=== PATIENT | male | born 1965 | race Caucasian/White ===

== ENCOUNTER 2021-01-07 11:36 | Emergency (ER) | payer BC ==
--- NOTE | 2021-01-07 12:01 | EDM.PDOC ---
ED HPI GENERAL MEDICAL PROBLEM - General Chief Complaint: Laceration Stated Complaint: left hand laceration Time Seen by Provider: 01/07/21 12:01 Source of Information: Reports: Patient History Limitations: Reports: No Limitations - History of Present Illness INITIAL COMMENTS - FREE TEXT/NARRATIVE: 55 YO WM PRESENTS TO ER WITH LEFT INDEX FINGER TIP LACERATION WHICH OCCURRED WHI LE FILLETING/CLEANING A DEER. PT REPORTS BLEEDING WAS CONTROLLED AND HE CONTINUED TO CLEAN DEER AFTER LACERATION. PT DENIES ANY PAIN CURRENTLY. LACERATION IS APPROXIMATELY 5CM VERTICAL/LINEAR WOUND AND APPEARS CLEAN AFTER SOAKING WOUND AT HOME. PT DENIES ANY OTHER INJURY OR ANY COMPLAINTS OF NEUROVASCULAR COMPROMISE. Onset: Today Duration: Hour(s): (2) Location: Reports: Upper Extremity, Left Quality: Reports: Ache Severity: Mild Improves with: Reports: None Worsens with: Reports: None Associated Symptoms: Reports: No Other Symptoms Treatments FAMILY PRACTICE PHYSICIAN ASSISTANT: Reports: Dressing(s) - Related Data Allergies Allergy/AdvReac Type Severity Reaction Status Date / Time No Known Allergies Allergy Verified 01/07/21 11:40 Home Meds: Home Meds hydroCHLOROthiazide [Hydrochlorothiazide] 25 mg PO DAILY 01/07/21 [History] lisinopriL [Lisinopril] 10 mg PO DAILY 01/07/21 [History] Past Medical History Cardiovascular History: Reports: High Cholesterol, Hypertension Psychiatric History: Reports: Bipolar Social & Family History - Caffeine Use Caffeine Use: Reports: Soda ED ROS GENERAL - Review of Systems Review Of Systems: See Below Constitutional: Reports: No Symptoms HEENT: Reports: No Symptoms Respiratory: Reports: No Symptoms Cardiovascular: Reports: No Symptoms Endocrine: Reports: No Symptoms GI/Abdominal: Reports: No Symptoms : Reports: No Symptoms Musculoskeletal: Reports: No Symptoms Skin: Reports: Wound (5CM FINGER TIP LACERATION TO LEFT INDEX FINGER) Neurological: Reports: No Symptoms Psychiatric: Reports: No Symptoms Hematologic/Lymphatic: Reports: No Symptoms Immunologic: Reports: No Symptoms ED EXAM, SKIN/RASH Exam: See Below Exam Limited By: No Limitations General Appearance: Alert, WD/WN, No Apparent Distress Head: Atraumatic, Normocephalic Neck: Normal Inspection, Supple, Non-Tender, Full Range of Motion Respiratory/Chest: No Respiratory Distress, Lungs Clear, Normal Breath Sounds, No Accessory Muscle Use, Chest Non-Tender Cardiovascular: Normal Peripheral Pulses, Regular Rate, Rhythm, No Edema, No Gallop, No JVD, No Murmur, No Rub GI/Abdominal: Normal Bowel Sounds, Soft, Non-Tender, No Organomegaly, No Distention, No Abnormal Bruit, No Mass Back Exam: Normal Inspection, Full Range of Motion, NT Extremities: Normal Inspection, Normal Range of Motion, No Pedal Edema, Normal Capillary Refill Neurological: Alert, Oriented, CN II-XII Intact, Normal Cognition, Normal Gait, Normal Reflexes, No Motor/Sensory Deficits Psychiatric: Normal Affect, Normal Mood Skin: Wound/Incision (5CM FINGER TIP LACERATION TO LEFT INDEX FINGER) ED SKIN PROCEDURES - Laceration/Wound Repair Left Distal Digit - 2nd (Index) Appearance: Subcutaneous, Linear Distal NVT: Neuro & Vascular Intact Anesthetic Type: Local Local Anesthesia - Lidocaine (Xylocaine): 1% Plain Local Anesthetic Volume: 5cc Skin Prep: Chlorhexidine (Hibiciens), Saline Exploration/Debridement/Repair: Wound Explored, In a Bloodless Field Closed with: Sutures Lac/Wound length In cm: 5 Suture Size: 5-0 # of Sutures: 3 Sterile Dressing Applied: Provider Tetanus Status Addressed: Yes Complications: No Course - Vital Signs Last Recorded V/S: Last Vital Signs Temp 97.8 F 01/07/21 11:44 Pulse 79 01/07/21 11:44 Resp 16 01/07/21 11:44 BP 137/87 01/07/21 11:44 Pulse Ox 96 01/07/21 11:44 - Orders/Labs/Meds Orders: Active Orders 24 hr Category Date Time Status Vaccine to be Administered/Admin Charge [RC] ASDIRECTED Care 01/07/21 12:16 Active Lidocaine 1% [Xylocaine 1%] Med 01/07/21 12:49 Once 20 ml INJECT ONETIME ONE Meds: Medications Discontinued Medications Generic Name Dose Route Start Last Admin Trade Name Freq PRN Reason Stop Dose Admin Diphtheria/Tetanus/Acell Pertussis 0.5 ml 01/07/21 12:16 01/07/21 12:17 Diphtheria,Pertussis(Acell),Tetanus Vaccine 0.5 Ml Syringe IM 01/07/21 12:17 0.5 ml .ONCE ONE Administration Lidocaine HCl Confirm 01/07/21 12:10 01/07/21 12:17 Lidocaine 1% 20 Ml Mdv Administered 01/07/21 12:11 Not Given Dose 20 ml .ROUTE .STK-MED ONE Lidocaine HCl 2 ml 01/07/21 12:47 Lidocaine 1% 20 Ml Mdv INJECT 01/07/21 12:48 ONETIME ONE Departure - Departure Time of Disposition: 12:18 Disposition: Home, Self-Care 01 Condition: Good Clinical Impression: Laceration of left index finger Qualifiers: Encounter type: initial encounter Damage to nail status: without damage Foreign body presence: without foreign body Qualified Code(s): S61.211A - Laceration without foreign body of left index finger without damage to nail, initial encounter - Discharge Information Instructions: Laceration Care, Adult, [id number] Referrals: PCP,Not In Area [Primary Care Provider] - Forms: ED Department Discharge Additional Instructions: 1. DISCHARGE HOME 2. WOUND CARE INSTRUCTIONS GIVEN 3. SUTURE REMOVAL IN 7-10 DAYS 4. FOLLOW UP WITH PCP NEEDED 5. RETURN TO ER FOR WORSENING SYMPTOMS Sepsis Event Note (ED) - Evaluation Sepsis Screening Result: No Definite Risk - Focused Exam Vital Signs: Vital Signs Temp Pulse Resp BP Pulse Ox 01/07/21 11:44 97.8 F 79 16 137/87 96 - My Orders Last 24 Hours: My Active Orders 01/07/21 12:16 Vaccine to be Administered/Admin Charge [RC] ASDIRECTED 01/07/21 12:49 Lidocaine 1% [Xylocaine 1%] 20 ml INJECT ONETIME ONE - Assessment/Plan Last 24 Hours: My Active Orders 01/07/21 12:16 Vaccine to be Administered/Admin Charge [RC] ASDIRECTED 01/07/21 12:49 Lidocaine 1% [Xylocaine 1%] 20 ml INJECT ONETIME ONE Assessment:: 1. 5CM FINGER TIP LACERATION TO LEFT INDEX FINGER Plan: 1. DISCHARGE HOME 2. WOUND CARE INSTRUCTIONS GIVEN 3. SUTURE REMOVAL IN 7-10 DAYS 4. FOLLOW UP WITH PCP NEEDED 5. RETURN TO ER FOR WORSENING SYMPTOMS
[2021-01-07] MEDS: Lidocaine 1% 20 ML MDV ONE (12:17)
[2021-01-07] MEDS: Diphtheria,Pertussis(Acell),Tetanus Vaccine 0.5 ML Syringe IM ONE (12:17)
[2021-01-07] MEDS: Lidocaine 1% 20 ML MDV INJECT ONE ×2 (12:30→13:42)
== END 2021-01-07 12:52 | disposition home or self-care (01) ==
LOC: KA.ED 11:36
DX: S61.211A Laceration without foreign body of left index finger without damage to nail, initial encounter (principal); E78.00 Pure hypercholesterolemia, unspecified; I10 Essential (primary) hypertension; Z23 Encounter for immunization; Z79.899 Other long term (current) drug therapy; W26.8XXA Contact with other sharp object(s), not elsewhere classified, initial encounter
CPT/HCPCS: 12002; 90471; 90715; 99282-25

== ENCOUNTER 2021-11-09 21:25 | Emergency (ER) | payer BC ==
[2021-11-09] MEDS ORDERED: Tetracaine HCl/PF 0.5% 4 ML Bottle EYELF ONE (21:45)
[2021-11-09] MEDS ORDERED: Dexamethasone/Neomycin/Polymyxin B Ophth Susp 5 ML Bottle EYELF SCH (22:20)
== END 2021-11-09 22:38 | disposition home or self-care (01) ==
LOC: KA.ED 21:25
DX: H57.89 Other specified disorders of eye and adnexa (principal); I10 Essential (primary) hypertension; Z79.899 Other long term (current) drug therapy
CPT/HCPCS: 99283; A9270-GY

== ENCOUNTER 2022-09-14 10:22 | Emergency (ER) | payer BC ==
[2022-09-14 11:00] LABS: BASOPHILS ABSOLUTE AUTO 0.01 10^3/uL (0.00-0.10); BASOPHILS PERCENT AUTO 0.2 % (0.0-1.0); EOSINOPHILS ABSOLUTE AUTO 0.07 10^3/uL (0.10-0.30); EOSINOPHILS PERCENT AUTO 1.7 % (1.0-3.0); HEMATOCRIT 43.5 % (40.0-52.0); HEMOGLOBIN 14.6 g/dL (13.0-17.0); LYMPHOCYTES ABSOLUTE AUTO 1.22 10^3/uL (1.00-4.00); LYMPHOCYTES PERCENT AUTO 30.3 % (20.0-40.0); MEAN CORPUSCULAR HEMOGLOBIN 29.9 pg (27.0-31.0); MEAN CORPUSCULAR HGB CONC 33.6 g/dL (32.0-36.0); MONOCYTES ABSOLUTE AUTO 0.38 10^3/uL (0.10-0.80); MONOCYTES PERCENT AUTO 9.5 % (2.0-8.0); NEUTROPHILS ABSOLUTE AUTO 2.34 10^3/uL (2.50-7.00); NEUTROPHILS PERCENT AUTO 58.3 % (50.0-70.0); PLATELET COUNT,PLT 173 10^3/uL (150-400); RED BLOOD CELL COUNT 4.89 10^6/uL (4.50-6.00); RED CELL DISTRIBUTION WIDTH 12.8 % (11.5-14.5); WHITE BLOOD CELL COUNT,WBC 4.02 10^3/uL (5.00-10.00)
== END 2022-09-14 11:35 | disposition home or self-care (01) ==
LOC: KA.ED 10:22
DX: J30.2 Other seasonal allergic rhinitis (principal); I10 Essential (primary) hypertension; Z79.899 Other long term (current) drug therapy
CPT/HCPCS: 36415; 85025; 99283